=== PATIENT | female | born 1990 | race Two or more races ===

== ENCOUNTER 2022-07-30 21:48 | Emergency (ER) | payer OTHER ==
[~2022-07-30] VITALS: Ht 149.9 cm; Wt 41.7 kg
[2022-07-30] MEDS ORDERED: SYNTHROID75 MCG PO (21:53)
== END 2022-07-31 00:18 | disposition home or self-care (01) ==
LOC: ER 21:48
DX: J06.9 Acute upper respiratory infection, unspecified (principal); Z91.013 Allergy to seafood; E03.9 Hypothyroidism, unspecified; J45.909 Unspecified asthma, uncomplicated; Z20.822 Contact with and (suspected) exposure to COVID-19

== ENCOUNTER 2022-09-15 07:15 | Emergency (ER) | payer OTHER ==
[~2022-09-15] VITALS: Ht 149.9 cm; Wt 43.5 kg
[~2022-09-15 07:15] MED LIST: SYNTHROID75 MCG PO
== END 2022-09-15 12:41 | disposition home or self-care (01) ==
LOC: ER 07:15
DX: T83.89XA Other specified complication of genitourinary prosthetic devices, implants and grafts, initial encounter (principal); Z91.013 Allergy to seafood